=== PATIENT | female | born 2000 | race Caucasian/White ===

== ENCOUNTER 2019-09-30 09:51 | Outpatient (RCR) | payer BC | END 2019-10-23 | disposition home or self-care (01) | LOC: WCC 09:51 | DX: M86.572 Other chronic hematogenous osteomyelitis, left ankle and foot (principal); L97.526 Non-pressure chronic ulcer of other part of left foot with bone involvement without evidence of necrosis; E03.9 Hypothyroidism, unspecified; Z88.2 Allergy status to sulfonamides | CPT/HCPCS: 82962; G0277; G0463; 99204 ==

== ENCOUNTER 2019-10-24 09:32 | Outpatient (RCR) | payer BC | END 2019-11-22 | disposition home or self-care (01) | LOC: WCC 09:32 | DX: M86.572 Other chronic hematogenous osteomyelitis, left ankle and foot (principal); L97.526 Non-pressure chronic ulcer of other part of left foot with bone involvement without evidence of necrosis; Z88.2 Allergy status to sulfonamides | CPT/HCPCS: G0277; G0463 ==